=== PATIENT | female | born 1975 | race Caucasian/White ===

== ENCOUNTER 2019-06-21 19:50 | Emergency (ER) | payer OTHER ==
[~2019-06-21] VITALS: Ht 157.5 cm; Wt 68.0 kg
[2019-06-21] MEDS ORDERED: LEXAPRO20 MG PO (20:26)
[2019-06-21 20:46] LABS: ABSOLUTE BASOPHILS 0.1 thou/uL (0.0-0.2); ABSOLUTE EOSINOPHILS 0.1 thou/uL (0.0-0.7); ABSOLUTE LYMPHOCYTES 3.6 thou/uL (0.8-5.3); ABSOLUTE NEUTROPHILS 6.7 thou/uL (1.6-8.1); BASOPHILS 0.7 %; EOSINOPHILS 1.1 %; HEMOGLOBIN 14.3 gm/dL (12.0-15.0); LYMPHOCYTES 31.1 %; MCH 30.5 pg (26.0-34.0); MCHC 34.1 g/dL (28.0-37.0); MCV 89.4 fL (80.0-100.0); MONOCYTES 8.8 %; MPV 7.3 fl. (7.2-11.1); NUCLEATED RBCS 0 /100WBC; PLATELET COUNT* 381 thou/uL (150-400); POLYS 58.3 %; RDW-CV 13.4 % (10.5-14.5); WBC 11.5 thou/uL (4.0-11.0)
[2019-06-21 20:46] LABS: URINE BILIRUBIN NEGATIVE (Negative); URINE BLOOD TRACE (Negative); URINE CLARITY CLEAR; URINE COLOR YELLOW; URINE GLUCOSE-RANDOM NEGATIVE (Negative); URINE KETONES NEGATIVE (Negative); URINE LEUKOCYTES-REFLEX NEGATIVE (Negative); URINE NITRITE-REFLEX NEGATIVE (Negative); URINE PROTEIN NEGATIVE (Negative); URINE SPECIFIC GRAVITY <= 1.005 (1.005-1.030); URINE UROBILINOGEN 0.2 E.U./dl (0.2-1.0)
[2019-06-21 20:50] LABS: CALCIUM 8.9 mg/dL (8.5-10.1); CREATININE 0.7 mg/dL (0.6-1.3); POTASSIUM 3.6 mmol/L (3.5-5.1)
[2019-06-21 20:56] LABS: TOTAL BILIRUBIN 0.1 mg/dL (<0.1-1.0); TOTAL PROTEIN 8.1 g/dL (6.4-8.2)
[2019-06-21 20:56] LABS: AMP/METHAMP Negative (Negative); BARBITURATES Negative (Negative); BENZODIAZEPINES Negative (Negative); COCAINE Negative (Negative); METHADONE Negative (Negative); OPIATES Negative (Negative); PCP Negative (Negative); THC Negative (Negative)
[2019-06-21 21:28] LABS: ALCOHOL 186 mg/dL (<10); SALICYLATE 5.6 mg/dL (2.8-20.0)
[2019-06-21 21:31] LABS: ACETAMINOPHEN < 2 ug/mL (10-30)
[2019-06-22 00:10] VITALS: BP 137/81
== END 2019-06-22 00:10 | disposition home or self-care (01) ==
LOC: M.ERS 19:50
PROVIDERS: Family Medicine
DX: F32.9 Major depressive disorder, single episode, unspecified (principal); Z91.048 Other nonmedicinal substance allergy status

== ENCOUNTER 2021-01-03 00:02 | Emergency (ER) | payer OTHER ==
[~2021-01-03] VITALS: Ht 157.5 cm; Wt 69.8 kg
[~2021-01-03 00:02] MED LIST: LEXAPRO20 MG PO
[2021-01-03 00:28] LABS: URINE BILIRUBIN NEGATIVE (Negative); URINE BLOOD TRACE (Negative); URINE CLARITY CLEAR; URINE COLOR YELLOW; URINE GLUCOSE-RANDOM NEGATIVE (Negative); URINE KETONES NEGATIVE (Negative); URINE LEUKOCYTES-REFLEX NEGATIVE (Negative); URINE NITRITE-REFLEX NEGATIVE (Negative); URINE PROTEIN NEGATIVE (Negative); URINE SPECIFIC GRAVITY <= 1.005 (1.005-1.030); URINE UROBILINOGEN 0.2 E.U./dl (0.2-1.0)
[2021-01-03 00:35] LABS: AMP/METHAMP Negative (Negative); BARBITURATES Negative (Negative); BENZODIAZEPINES Negative (Negative); COCAINE Negative (Negative); METHADONE Negative (Negative); OPIATES Negative (Negative); PCP Negative (Negative); THC Negative (Negative)
[2021-01-03] MEDS ORDERED: PERCOCET 7.5-31 EAC1 PO (01:55)
[2021-01-03] MEDS ORDERED: FLEXERIL PO (01:55)
[2021-01-03 02:10] VITALS: BP 118/60
== END 2021-01-03 02:10 | disposition home or self-care (01) ==
LOC: M.ERS 00:02
PROVIDERS: Emergency Medicine
DX: M54.16 Radiculopathy, lumbar region (principal); M25.551 Pain in right hip; F17.210 Nicotine dependence, cigarettes, uncomplicated; Z95.5 Presence of coronary angioplasty implant and graft; Z79.899 Other long term (current) drug therapy